=== PATIENT | male | born 1995 | race Caucasian/White ===

== ENCOUNTER 2019-12-16 17:14 | Emergency (ER) | payer SELFPAY ==
[2019-12-16 17:18] VITALS: BP 116/76; PULSE 91; RESP 16; TEMP 36.8; O2SAT 97; BMI 20.2
--- NOTE | 2019-12-16 17:22 | ED_ITS ---
HPI - Fever General: Chief Complaint: Fever Stated Complaint: FEVER ACHES Time Seen by Provider: 12/16/19 17:20 History of Present Illness: HPI Narrative: Patient is a 24-year-old male comes into the ED with cough, nasal congestion and drainage, Body aches and fever. Patient states the symptoms started on Monday (3 days ago). Patient states he's had fever as high as on 105F and is taken Tylenol to help reduce fever. His cough is dry and nonproductive. He does not have a sore throat, ear pain, shortness of breath, abdominal pain, N/V, bladder or bowel symptoms. Associated symptoms: Reports nasal congestion; Deny abdominal pain, back/flank pain, chills, chest pain, diarrhea, dysuria, headache(s), nausea or vomiting Review of Systems Const: Reports: fever; Denies: chills or fatigue Eyes: Denies: change in vision or eye discomfort ENMT: Reports: nasal discharge and nasal congestion; Denies: throat pain or painful swallowing Card: Denies: chest pain, palpitations, edema, swelling of feet/ankles, shortness of breath on exertion or shortness of breath when lying down Resp: Reports: non-productive cough; Denies: shortness of breath or productive cough GI: Denies: abdominal pain, nausea, vomiting, diarrhea, constipation or blood in stool : Denies: flank pain, difficulty urinating, painful urination or blood in urine Musc: Denies: neck pain, back pain or extremity swelling Skin/Breast: Denies: rash or new lesion Neuro: Denies: headache, numbness in extremities or weakness in extremities COUNTS INCLUDE 234 BEDS AT THE [facility] ED PFSH: Social History Smoking and tobacco status: current every day smoker Physical Exam Narrative: EXAM NARRATIVE: Patient is a 24-year-old male who is sitting comfortably on the exam chair when entered the room. He is not showing any signs of acute respiratory distress or any acute pain. Const: COMMON NORMALS: oriented x3 HENMT: COMMON NORMALS: normocephalic, TM's normal bilaterally and external nose normal HEAD & SCALP: normocephalic NOSE: external nose normal and nasal discharge clear TYMPANIC MEMBRANE: TM's normal bilaterally MOUTH: oral and palatal mucosa normal THROAT: posterior oropharynx normal and uvula midline Eye: COMMON NORMALS: PERRL PUPIL: Yes PERRL Neck/C-Spine: COMMON NORMALS: supple GENERAL: Yes normal visual inspection Lymph: LYMPHATIC: no lymphadenopathy noted Resp: COMMON NORMALS: normal respiratory effort, no retractions, no use of accessory muscles and clear to auscultation bilaterally AUSCULTATION: clear to auscultation bilaterally Cardio: COMMON NORMALS: regular rate, regular rhythm, S1 normal heart sound, S2 normal heart sound, no gallops, no clicks, no murmurs and peripheral pulses 2+ throughout RATE: regular rate RHYTHM: regular rhythm HEART SOUNDS: S1 normal and S2 normal PERIPHERAL PULSES: pulses 2+ throughout GI: COMMON NORMALS: normal to inspection, nondistended, normoactive bowel sounds, soft to palpation, non-tender and no masses PALPATION: Yes soft : COMMON NORMALS: Yes no CVA tenderness BLADDER/KIDNEY EXAM: Yes no CVA tenderness Back/Pelvis: COMMON NORMALS: no CVA tenderness Extremity: COMMON NORMALS: normal to inspection and normal capillary refill Neuro: COMMON NORMALS: oriented x3 and moves all extremities Skin: COMMON NORMALS: no rashes or lesions noted NARRATIVE SKIN EXAM: When I was assessing the patient's poles his wrists were clammy. GENERAL SKIN EXAM: no rashes or lesions noted Course Vital Signs: Vital signs: Vital Signs Temperature 98.2 F 12/16/19 19:16 Pulse Rate 88 12/16/19 19:16 Respiratory Rate 18 12/16/19 19:16 Blood Pressure 103/61 12/16/19 19:16 Pulse Oximetry 98 12/16/19 19:16 MDM - Fever Lab Data: Attestation: I reviewed the patient's lab results. Labs: Lab Results 12/16/19 Range/Units 17:40 Influenza Type A A g Negative (Negative) POC Influenza B Ag Negative (Negative) Imaging Data^: CXR: Attestation: I personally reviewed and interpreted this imaging study as follows: My impression: No pneumonia or lung consolidation seen. Possible acute bronchitis. Pending final radiology report. Discharge Plan Discharge Patient Disposition: Home, Self-Care Clinical Impression: Bronchitis Condition: Stable Prescriptions: New azithromycin 250 mg tablet See Rx Instructions .ROUTE .COMPLEX Qty: 6 RF: 0 Discharge Orders: Discharge Order (Routine); Ordered 12/16/19 Ordered By: Alonzo Tarango Discharge Diet: Regular Discharge Activity: Resume usual activity Patient Instructions: Acute Bronchitis (ED) Activity Restrictions/Additional Instructions: Follow-up with your PCP in 7 days for reevaluation. Take full course of antibiotics as prescribed. Take Tylenol or ibuprofen for fevers. Drink plenty of fluids and stay hydrated. He can always return to the ED for any worsening symptoms or having shortness of breath. Discharge Date/Time: 12/16/19 19:05 Coding Level of Care Code ED Internet Application Developer for Selina Fwd Exam Comprehensive
--- NOTE | 2019-12-16 17:23 | XR_ITS ---
WS: [id number] XR chest 1V portable [id number] REASON FOR EXAM: cough and fever FINDINGS: The heart and mediastinal interfaces are normal. The lung vergara are well aerated. No pneumonia, pleural effusion, pulmonary edema, or mass effect. No osseous abnormalities. The hilum and apices are normal. XR/XR chest 1V portable [id number] IMPRESSION: Normal chest for active pathology.
[2019-12-16 18:05] VITALS: BP 102/54; PULSE 78; RESP 18; TEMP 37.3; O2SAT 98
[2019-12-16 18:33] LABS: Influenza A by IFA Negative (Negative); Influenza B by IFA Negative (Negative)
[2019-12-16 19:16] VITALS: BP 103/61; PULSE 88; RESP 18; TEMP 36.8; O2SAT 98
== END 2019-12-16 19:05 | disposition home or self-care (01) ==
PROVIDERS: Emergency Provider Physician Assistant
DX: J40 Bronchitis, not specified as acute or chronic (principal); F17.200 Nicotine dependence, unspecified, uncomplicated
CPT/HCPCS: 71045; 87804; 99281; 99283

== ENCOUNTER → 2023-02-15 11:20 | Outpatient (BNVA) | payer BC, SELFPAY | PROVIDERS: Visit Provider Registered Nurse Neonatal Intensive Care | DX: R68.89 Other general symptoms and signs (principal); R09.89 Other specified symptoms and signs involving the circulatory and respiratory systems; B34.9 Viral infection, unspecified | CPT/HCPCS: 87400; 87426 ==

== ENCOUNTER → 2023-09-28 09:17 | Outpatient (BNVA) | payer BC, SELFPAY | PROVIDERS: Visit Provider Psychiatry & Neurology Psychiatry | DX: F43.12 Post-traumatic stress disorder, chronic (principal); F10.20 Alcohol dependence, uncomplicated; Z79.899 Other long term (current) drug therapy | CPT/HCPCS: 80061; 83036 ==

== ENCOUNTER 2024-03-03 21:35 | Inpatient (IN) | payer BC, SELFPAY ==
[2023-10-06 11:00] VITALS: BP 114/63; BMI 22.3
[2024-03-03 21:42] VITALS: BP 125/76; PULSE 120; RESP 16; TEMP 37.2; O2SAT 98; BMI 22.4
[2024-03-03 22:32] LABS: Add Urine Microscopic? YES; Bacteria Urine TRACE /hpf; Bilirubin Urine Neg (Negative); Blood Urine Neg (Negative); Glucose Urine UA Norm (Normal); Ketones Urine 1+ (Negative); Leukocyte Esterase Urine Trace (Negative); Nitrate Urine Negative (Negative); Protein Urine Neg (Negative); RBC Urine 0-4 /hpf (0-2); Specific Gravity, Urine 1.005 (1.005-1.030); Squamous Epithelial Cell Urine 0-4 /hpf (0-5); Sulfosalicylic Acid Urine Negative (Negative); Urine Appearance Clear (CLEAR); Urine Color Amber (Yellow); Urobilinogen Urine 4 mg/dL (Negative); WBC Urine 0-4 /hpf (0-5); pH Urine 8 (5-7)
[2024-03-03 22:33] LABS: Amorphous Sediment Urine TRACE /hpf; Amphetamines Screen Urine Negative (Negative); Barbiturates Screen Urine Negative (Negative); Benzodiazepines Screen Urine Negative (Negative); Cocaine Screen Urine Negative (Negative); Hyaline Casts Urine 0-4 /lpf; Mucus Urine 2+ /hpf; Opiate Screen Urine Positive (Negative); PCP Screen Urine Negative (Negative); THC Screen Urine Positive (Negative)
--- NOTE | 2024-03-03 22:39 | ED.C_ITS ---
HPI - Psych 2 General: Chief Complaint: Psychiatric Symptoms Stated Complaint: si Time Seen by Provider: 03/03/24 21:52 History of Present Illness: 28-year-old male with no prior history o f psychiatric admissions. He presents with increasing thoughts of self-harm, and harm to others. He uses alcohol daily. He admits to potentially taking methamphetamine this evening. He was encouraged by his to come in for evaluation and potential treatment Review of Systems 2 Const: Denies: fever(s), chills or body aches Eyes: Denies: change in vision Card: Denies: chest pain or palpitations Resp: Denies: dyspnea, productive cough, non-productive cough or wheezing GI: Denies: abdominal pain, nausea, vomiting, diarrhea or hematochezia Skin/Breast: Denies: rash Neuro: Denies: headache(s), weakness in extremities, dizziness or confusion PFSH ED 2 PFSH: Medical History Moderate major depression Severe anxiety Dyslexia Psychiatric care Family History Brother Cancer Non-Hodgkins lymphoma Family/Other Cancer Paternal Aunt-breast Other Aneurysm Autoimmune disease Dissociative identity disorder Liver disease Lung disease Non Hodgkin's lymphoma Psychiatric illness Schizophrenia Seizure disorder Denies family history of Diabetes CAD (coronary artery disease) Clotting disorder Dementia Hyperlipidemia Chronic kidney disease (CKD) Bleeding disorder Hypertension Thyroid disease Stroke Social History (Updated 11/03/23 @ 10:12 by Hina Ortiz LPN) Smoking and tobacco/nicotine status: current every day tobacco/nicotine user cigarettes Packs smoked per day: 0.5 Years cigarettes smoked: 10 [ Other cigarette details: Full on smoking since 18 but started using tobacco sporadically since age 7], e-cigarettes E-Cigarette Details: e-cigarette and with nicotine E-cig/vape details: goes through a tank a day and smokeless tobacco Smokeless tobacco user: chewing tobacco Smokeless tobacco details: every once in a while Quit status (tobacco/nicotine): not considering quitting Second hand smoke exposure: Yes Alcohol intake: current Alcohol intake frequency: few times a week Alcohol type: hard liquor Substance/Drug Use: current Substance/Drug use frequency: few times a month Adopted: No Caregiver/support person: No Lives independently: No Household members: spouse and children Housing: Apartment Marital status: Marital status details: Since 2019 Number of children: 1 Number of grandchildren: 0 Highest education level completed: High School Graduate service: No Current occupational status: employed Current occupation: [employer] Current occupational exposures/hazards: No Pets and animals: Yes Pets & animals: cat(s), dog(s) and snake(s) Leisure activites: other Leisure activities details: sleep Sexually active: Yes How many partners: 1 Do you think of yourself as: Straight/Heterosexual Current gender identity: Female Malini/Scientology: Yap Special malini needs: No Agree to transfusion: Yes Physical Exam 2 Const: COMMON NORMALS: no acute distress GENERAL APPEARANCE: cooperative; not ill appearing and not frail appearing HENMT: COMMON NORMALS: normocephalic, atraumatic and Normal external nose present HEAD & SCALP: normocephalic and atraumatic FACE & SINUS: normal facial exam and face symmetric NOSE: Normal external nose present Eye: COMMON NORMALS: Equal, round and reactive pupils present and EOMs intact bilaterally PUPIL: Yes Equal, round and reactive pupils present Neck/C-Spine: GENERAL: Yes trachea midline Chest: CHEST: Yes Symmetrical chest wall rise Resp: COMMON NORMALS: normal respiratory effort, No retractions, No use of accessory muscles and clear to auscultation bilaterally AUSCULTATION: clear to auscultation bilaterally Cardio: COMMON NORMALS: regular rate and regular rhythm RATE: regular rate RHYTHM: regular rhythm GI: COMMON NORMALS: Normal to inspection, nondistended, normoactive bowel sounds present Extremity: COMMON NORMALS: no pedal edema Neuro: JOSE COMA SCALE: document GCS findings Jose coma scale eye opening: Spontaneous Jose coma scale verbal response: Orientated [place] coma scale motor response: Obey commands [place] coma scale total score: 15 S ENSORY EXAM: Yes extremities (intact) Psych: COMMON NORMALS: speech normal SPEECH: Yes normal speech Skin: COMMON NORMALS: no rashes or lesions noted GENERAL SKIN EXAM: no rashes or lesions noted Course 2 Vital Signs: Vital signs: Vital Signs Temperature 98.9 F 03/04/24 00:12 Pulse Rate 102 H 03/04/24 00:12 Respiratory Rate 20 H 03/04/24 00:12 Blood Pressure 128/73 03/04/24 00:12 Pulse Oximetry 96 03/04/24 00:12 Oxygen Delivery Me thod Room Air 03/04/24 00:22 MDM - Psych Medical Decision Making Patient has been compliant since being here. Urinalysis is negative. UDS is positive for opioids and marijuana. Laboratory is not remarkable. Spoke with psychiatry, they are willing to admit. Orders have been written. Patient is voluntary at this time. Lab Data 03/03/24 22:58 03/03/24 22:58 Laboratory Results WBC 7.68 10^3/uL (3.29-11.43) 03/03/24 22:58 RBC 5.74 10^6/uL (3.85-5.65) H 03/03/24 22:58 Hgb 16.90 g/dL (11.27-16.99) 03/03/24 22:58 Hct 48.1 % (37-53) 03/03/24 22:58 MCV 83.8 fl (82-101) 03/03/24 22:58 MCH 29.4 pg (27-33) 03/03/24 22:58 MCHC 35.1 g/dL (30-55) 03/03/24 22:58 RDW 13.7 % (12.1-15.1) 03/03/24 22:58 Plt Count 285 10^3/cmm (157-399) 03/03/24 22:58 MPV 9.1 fL (7.4-10.4) 03/03/24 22:58 Neut % (Auto) 65.0 % 03/03/24 22:58 Lymph % (Auto) 28.0 % 03/03/24 22:58 [place] % (Auto) 5.9 % 03/03/24 22:58 Eos % (Auto) 0.4 % 03/03/24 22:58 Baso % (Auto) 0.4 % 03/03/24 22:58 Neut # (Auto) 5.00 10^3/uL (1.8-7.7) 03/03/24 22:58 Lymph # (Auto) 2.2 10^3/uL (0.8-4.8) 03/03/24 22:58 [place] # (Auto) 0.5 10^3/uL (0.2-0.9) 03/03/24 22:58 Eos # (Auto) 0.0 10^3/uL (0.0-0.8) 03/03/24 22:58 Baso # (Auto) 0.0 10^3/uL (0.0-0.1) 03/03/24 22:58 Nucleated RBC % (auto) 0 % 03/03/24 22:58 Nucleated RBCs # 0.0 /100WBC 03/03/24 22:58 Sodium 143 mmol/L (136-145) 03/03/24 22:58 Potassium 3.4 mmol/L (3.5-5.1) L 03/03/24 22:58 Chloride 104 mmol/L (98-107) 03/03/24 22:58 Carbon Dioxide 24 mmol/L (22-29) 03/03/24 22:58 Anion Gap 18.4 (5-19) 03/03/24 22:58 BUN 6 mg/dL (6-20) 03/03/24 22:58 Creatinine 0.7 mg/dL (0.7-1.2) 03/03/24 22:58 GFR Calculation 136.3 mL/min (90-130) H 03/03/24 22:58 Glucose 87 mg/dL (65-115) 03/03/24 22:58 Calculated Osmolality 293 mOsm/kg (285-295) 03/03/24 22:58 Calcium 9.5 mg/dL (8.5-10.5) 03/03/24 22:58 Total Bilirubin 0.8 mg/dL (0.15-1.2) 03/03/24 22:58 AST 25 U/L (0-40) 03/03/24 22:58 ALT 16 U/L (0-41) 03/03/24 22:58 Alkaline Phosphatase 107 U/L (40-130) 03/03/24 22:58 Total Protein 7.9 g/dL (6.6-8.7) 03/03/24 22:58 Albumin 4.5 g/dL (3.5-5.2) 03/03/24 22:58 Globulin 3.4 g/dL (1.3-4.6) 03/03/24 22:58 TSH 1.07 uIU/mL (0.27-4.20) 03/03/24 22:58 Urine Color Irma (Yellow) 03/03/24 22:15 Urine Appearance Clear (CLEAR) 03/03/24 22:15 Urine pH 8 (5-7) H 03/03/24 22:15 Ur Specific [place] 1.005 (1.005-1.030) 03/03/24 22:15 Urine Protein Neg (Negative) 03/03/24 22:15 Urine Glucose (UA) Norm (Normal) 03/03/24 22:15 Urine Ketones 1+ (Negative) H 03/03/24 22:15 Urine Blood Neg (Negative) 03/03/24 22:15 Urine Nitrate Negative (Negative) 03/03/24 22:15 Urine Bilirubin Neg (Negative) 03/03/24 22:15 Prot Sulfosalicylic Acd Negative (Negative) 03/03/24 22:15 Urine Urobilinogen 4 mg/dL (Negative) H 03/03/24 22:15 Ur Leukocyte Esterase Trace (Negative) H 03/03/24 22:15 Urine RBC 0-4 /hpf (0-2) H 03/03/24 22:15 Urine WBC 0-4 /hpf (0-5) H 03/03/24 22:15 Ur Squamous Epith Cells 0-4 /hpf (0-5) H 03/03/24 22:15 Amorphous Sediment Trace /hpf 03/03/24 22:15 Urine Bacteria Trace /hpf (NONE) 03/03/24 22:15 Hyaline Casts 0-4 /lpf H 03/03/24 22:15 Urine Mucus 2+ /hpf 03/03/24 22:15 Salicylates < 0.3 mg/dL (3-10) L 03/03/24 22:58 Urine Opiates Screen Positive ng/mL (Negative) H 03/03/24 22:15 Acetaminophen < 5.0 ug/mL (10-30) L 03/03/24 22:58 Ur Barbiturates Screen Negative ng/mL (Negative) 03/03/24 22:15 Ur Phencyclidine Scrn Negative ng/mL (Negative) 03/03/24 22:15 Ur Amphetamines Screen Negative ng/mL (Negative) 03/03/24 22:15 U Benzodiazepines Scrn Negative ng/mL (Negative) 03/03/24 22:15 Urine Cocaine Screen Negative ng/mL (Negative) 03/03/24 22:15 U Marijuana (THC) Screen Positive ng/mL (Negative) H 03/03/24 22:15 Ethyl Alcohol 36 mg/dL (0-10) H 03/03/24 22:58 No radiology studies performed this visit Discharge Plan Discharge Patient Disposition: Admitted As Inpatient Admit Provider: Alex Mancilla Clinical Impression: Suicidal ideation, Depression Condition: Stable Coding Level of Care Code ED Industrial Gas Service Helper for Selina Ferreira
[2024-03-03] MEDS: LORazepam 2 mg Tablet PO (23:13)
[2024-03-03] MEDS: nicotine 21 mg Patch 1 PATCH TRANSDERMA (23:13)
[2024-03-03] MEDS: OLANZapine 10 mg ODT 20 MG PO (23:13)
[2024-03-03 23:21] LABS: Basophils % 0.4 %; Eosinophils % 0.4 %; Hematocrit 48.1 % (37-53); Lymphocytes # 2.2 10^3/uL (0.8-4.8); Mean Corpuscular HGB Conc 35.1 g/dL (30-55); Mean Corpuscular Hemoglobin 29.4 pg (27-33); Mean Corpuscular Volume 83.8 fl (82-101); Mean Platelet Volume 9.1 fL (7.4-10.4); Monocytes # 0.5 10^3/uL (0.2-0.9); Monocytes % 5.9 %; Nucleated Red Blood Cells % 0 %; Platelet Count 285 10^3/cmm (157-399); Red Blood Count 5.74 10^6/uL (3.85-5.65); Red Cell Distribution Width 13.7 % (12.1-15.1); White Blood Count 7.68 10^3/uL (3.29-11.43)
[2024-03-03 23:48] LABS: Alanine Aminotransferase 16 U/L (0-41); Albumin Level 4.5 g/dL (3.5-5.2); Alcohol Level 36 mg/dL (0-10); Alkaline Phosphatase 107 U/L (40-130); Anion Gap 18.4 (5-19); Aspartate Amino Transferase 25 U/L (0-40); Blood Urea Nitrogen 6 mg/dL (6-20); Calcium 9.5 mg/dL (8.5-10.5); Carbon Dioxide 24 mmol/L (22-29); Chloride 104 mmol/L (98-107); Creatinine Clr Calc Pharmacy 173.0294; Globulin 3.4 g/dL (1.3-4.6); Glomerular Filtration Rate 136.3 mL/min (90-130); Glucose 87 mg/dL (65-115); Osmolality Calculated 293 mOsm/kg (285-295); Potassium 3.4 mmol/L (3.5-5.1); Sodium 143 mmol/L (136-145); Thyroid Stimulating Hormone 1.07 uIU/mL (0.27-4.20); Total Bilirubin 0.8 mg/dL (0.15-1.2); Total Protein 7.9 g/dL (6.6-8.7)
[2024-03-03 23:50] LABS: Acetaminophen < 5.0 ug/mL (10-30); Salicylate < 0.3 mg/dL (3-10)
[2024-03-04] VITALS: BP 128/73; PULSE 102; RESP 18; O2SAT 96
[2024-03-04 00:08] VITALS: BP 122/52; PULSE 101; RESP 20; TEMP 37.2; O2SAT 95
[2024-03-04 00:12] VITALS: BP 128/73; PULSE 102; RESP 20; TEMP 37.2; O2SAT 96
[2024-03-04 06:00] VITALS: BP 108/66; PULSE 73; RESP 16; O2SAT 96
--- NOTE | 2024-03-04 08:27 | PC.NURSE ---
IN BED RESTING AROUSES TO VOICE. PT IS NOTED TO HAVE A FLAT AFFECT AND DEPRESSED MOOD. PT IS EVASIVE WITH ASSESSMENT AND HAS NO EYE CONTACT WITH THIS RN. RATES ANXIETY AND DEPRESSION 11/08. PT STATES HE SLEPT GOOD LAST NIGHT. DENIES PAIN. GOAL FOR THE DAY IS TO GET SOME REST. PT SLEPT THROUGH BREAKFAST AND WAS ENCOURAGED TO GET UP BUT DECLINED. ALL QUESTIONS WERE ANSWERED AND SUPPORT VOICED.
[2024-03-04] MEDS: multivitamin therapeutic Tablet 1 TAB PO (09:52)
[2024-03-04] MEDS: thiamine 100 mg Tablet PO (09:52)
[2024-03-04] MEDS: folic acid 1 mg Tablet PO (09:52)
[2024-03-04 12:10] VITALS: BP 118/68; PULSE 86; RESP 18; TEMP 36.8; O2SAT 97
[2024-03-04] MEDS: nicotine 4 mg lozenge MUCOUS MEM (16:10)
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
[2024-03-04] MEDS: ARIPiprazole 10 mg Tablet 5 MG PO (18:17)
[2024-03-04] MEDS: cloNIDine 0.1 mg Tablet 0.100000000000000006 MG PO (18:17)
[2024-03-04 20:32] VITALS: BP 92/54; PULSE 115; RESP 16; TEMP 36.7; O2SAT 98
[2024-03-04 21:32] LABS: Hepatitis A Antibody IgM Non-Reactive (Nonreactive); Hepatitis B Core AB, Total Non-Reactive (Nonreactive); Hepatitis B Surface AB < 3.5 (11.5-1000); Hepatitis B Surface Antigen Non-Reactive (Nonreactive); Hepatitis C Virus Antibody Non-Reactive (Nonreactive)
[2024-03-05] MEDS: acetaminophen 325 mg Tablet 650 MG PO (05:07)
[2024-03-05 06:19] VITALS: BP 102/62; PULSE 88; RESP 16; O2SAT 97
[2024-03-05 08:00] VITALS: BP 119/53; PULSE 72; RESP 20; TEMP 36.6; O2SAT 97
[2024-03-05] MEDS: ARIPiprazole 10 mg Tablet 5 MG PO (08:38)
[2024-03-05] MEDS: folic acid 1 mg Tablet PO (08:38)
[2024-03-05] MEDS: thiamine 100 mg Tablet PO (08:38)
[2024-03-05] MEDS: multivitamin therapeutic Tablet 1 TAB PO (08:38)
[2024-03-05 08:40] VITALS: BP 119/53
[2024-03-05] MEDS: ibuprofen 600 mg Tablet PO (08:44)
[2024-03-05] MEDS: nicotine 21 mg Patch 1 PATCH TRANSDERMA (11:21)
[2024-03-05 12:00] VITALS: BP 103/66; PULSE 125; RESP 20; TEMP 37; O2SAT 98
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
[2024-03-05 15:20] VITALS: BP 119/53
== END 2024-03-05 15:56 | disposition home or self-care (01) | DRG 886 ==
LOC: ER 23:41 → NP 23:57
PROVIDERS: Nurse Practitioner Family; Admitting Provider Psychiatry & Neurology Psychiatry; Emergency Provider Emergency Medicine; PCP Family Medicine; Visit Provider Psychiatry & Neurology Psychiatry
DX: F63.9 Impulse disorder, unspecified (principal); R45.851 Suicidal ideations; F15.20 Other stimulant dependence, uncomplicated; F10.10 Alcohol abuse, uncomplicated; Y90.1 Blood alcohol level of 20-39 mg/100 ml; F17.210 Nicotine dependence, cigarettes, uncomplicated; F32.A Depression, unspecified; F43.12 Post-traumatic stress disorder, chronic; Z91.51 Personal history of suicidal behavior; Z62.810 Personal history of physical and sexual abuse in childhood
CPT/HCPCS: 36415; 80053; 80306; 80307; 81001; 84443; 85025; 86705; 86706; 86709; 86803; 87340; 97165; 99285

== ENCOUNTER → 2024-08-13 10:05 | Outpatient (BNVA) | payer BC, SELFPAY ==
[2024-04-29 08:10] VITALS: BP 114/63; BMI 22.3
== END ==
PROVIDERS: PCP Family Medicine; Visit Provider Nurse Practitioner Psychiatric/Mental Health
DX: F43.12 Post-traumatic stress disorder, chronic (principal); Z79.899 Other long term (current) drug therapy
CPT/HCPCS: 80053; 80061; 80307; 83036

== ENCOUNTER → 2024-09-23 13:29 | Outpatient (BNVA) | payer BC, SELFPAY ==
[2024-08-16 11:48] VITALS: BP 93/59; BMI 23.5
== END ==
PROVIDERS: PCP Family Medicine; Referring Provider Nurse Practitioner Psychiatric/Mental Health; Visit Provider Internal Medicine Cardiovascular Disease
DX: Z79.899 Other long term (current) drug therapy (principal)
CPT/HCPCS: 93005

== ENCOUNTER → 2025-08-25 11:30 | Outpatient (BNVA) | payer BC, SELFPAY ==
[2024-08-16 11:48] VITALS: BP 93/59; BMI 23.5
== END ==
PROVIDERS: PCP Family Medicine; Visit Provider Nurse Practitioner Psychiatric/Mental Health
DX: Z03.89 Encounter for observation for other suspected diseases and conditions ruled out (principal); Z79.899 Other long term (current) drug therapy
CPT/HCPCS: 80053; 80061; 82306; 82652; 83036

== ENCOUNTER → 2025-08-26 08:40 | Outpatient (BNVA) | payer BC, SELFPAY ==
[2025-08-26 10:27] VITALS: BP 117/63; BMI 22.9
== END ==
PROVIDERS: PCP Family Medicine; Visit Provider Nurse Practitioner Psychiatric/Mental Health
DX: Z79.899 Other long term (current) drug therapy (principal)
CPT/HCPCS: 80307